=== PATIENT | female | born 1940 | race Caucasian/White ===

== ENCOUNTER 2017-02-10 06:30 | Emergency (ER) | payer BC, MEDICARE ==
[~2017-02-10 06:30] MED LIST: ATEN1TAB73; COUM5TAB; HYZA100T4; SOTA80TA; WARF2.5
[2017-02-10 06:33] VITALS: BP 185/84; PULSE 72; RESP 16; TEMP 98.5; O2SAT 97
[2017-02-10] MEDS ORDERED: CARV12.52 PO (06:50)
[2017-02-10] MEDS ORDERED: PRED5TAB PO (06:50)
[2017-02-10] MEDS ORDERED: DENO60P SQ (06:50)
[2017-02-10] MEDS ORDERED: VITA100036 PO (06:50)
[2017-02-10] MEDS ORDERED: SPIR25TA PO (06:50)
[2017-02-10] MEDS ORDERED: XARE20TA PO (06:50)
[2017-02-10] MEDS ORDERED: FURO20TA PO (06:50)
[2017-02-10 07:21] VITALS: BP 169/74; PULSE 61; RESP 16; O2SAT 99
--- NOTE | 2017-02-10 07:25 | PD ---
HPI Chief Complaint: Pain: Acute or Chronic Time Seen by Provider: 07:14 Travel History International Travel<30 days: No Contact w/Intl Traveler<30days: No Traveled to known affect area: No History of Present Illness HPI The patient was seen and examined in the presence of the nurse. This patient complains of pain in her left hip area. Duration is 10 hours. Severity is moderate. There is no injury. She has no fever. No alleviating factors. 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) Cholecystectomy: Yes Gynecologic Surgery: Yes (D&C) Insulin Pump: No Joint Replacement: No Pacemaker: No Tonsillectomy: Yes Other Surgery: Yes Social History Alcohol Use: No (NONE SINCE 2003) Tobacco Use: No (never) Substance Use: No Allergies-Medications (Allergen,Severity, Reaction): Coded Allergies: Levofloxacin (Verified Allergy, Severe, Swelling, 02/10/17) Reported Meds & Prescriptions Reported Meds & Active Scripts Active Reported Vitamin D3 (Cholecalciferol) 1,000 Unit Cap 1,000 Units PO DAILY Prolia Inj (Denosumab) 60 Mg/Ml Inj 60 Mg SQ Q180D Prednisone 5 Mg Tab 5 Mg PO DAILY Xarelto (Rivaroxaban) 20 Mg Tab 20 Mg PO DAILY Spironolactone 25 Mg Tab 25 Mg PO DAILY Furosemide 20 Mg Tab 20 Mg PO DAILY Carvedilol 12.5 Mg Tab 12.5 Mg PO BID Review of Systems General / Constitutional: No: Fever Eyes: No: Visual changes HENT: No: Headaches Cardiovascular: No: Chest Pain or Discomfort Respiratory: No: Shortness of Breath Gastrointestinal: No: Abdominal Pain Genitourinary: No: Dysuria Musculoskeletal: Positive: Pain Skin: No Rash Neurologic: No: Weakness Psychiatric: No: Depression Endocrine: No: Polydipsia Hematologic/Lymphatic: No: Easy Bruising Physical Exam Narrative SKIN: Focused skin assessment reveals no rash or ulcers. Skin is warm and dry. Palpation shows no induration or nodules. Psych: Normal mood and affect. Normal insight and judgment. GASTROINTESTINAL: Abdomen soft, non-tender, nondistended. Positive bowel sounds. No hepato-splenomegaly, or palpable masses. No guarding. Left hip: No erythema or bruising or swelling. Minimal tenderness over the trochanteric bursa. Good range of motion. Data Data Last Documented VS Vital Signs Date Time Temp Pulse Resp B/P Pulse Ox O2 Delivery O2 Flow Rate FiO2 02/10/17 07:21 61 16 169/74 99 Room Air 02/10/17 06:33 98.5 Orders Femur (Ap & Lat/2vws) (02/10/17 ) MDM Medical Decision Making Medical Screen Exam Complete: Yes Emergency Medical Condition: Yes Medical Record Reviewed: Yes Differential Diagnosis Trochanter bursitis, bony metastasis, DVT Narrative Course I have reviewed the patient's electronic medical record. I reviewed her left femur x-rays which show atherosclerotic disease but no abnormality of bone No objective findings on exam Area of pain is over the trochanteric bursa but it doesn't seem obviously inflamed Supportive care discussed Tramadol prescribed Recommend her using a walker for few days to keep weight off that leg. She is ambulatory here in the department though. Diagnosis Primary Impression: Left leg pain Additional Instructions: The patient was advised to follow up with their physician and return if they worsen. The patient was warned about potential sedation for the medications they will receive on prescription. Limit weightbearing left leg Med/Other Pt SpecificInfo: Prescription(s) given Scripts Tramadol 50 Mg Tab50 Mg PO Q6H PRN (PAIN) #20 TAB Ref 0 Prov:Sae Theodore MD 02/10/17 Disposition: DISCHARGE HOME Condition: Stable Sae Theodore MD February 10, 2017 07:25
--- NOTE | 2017-02-10 07:55 | RADRPT ---
EXAM DATE/TIME: 02/10/2017 07:31 [facility] COMPARISON: No previous studies available for comparison. INDICATIONS : Left leg pain for the past two days. No prior trauma. MEDICAL HISTORY : Arthritis. SURGICAL HISTORY : None. ENCOUNTER: Initial ACUITY: 2 days PAIN SCORE: 10/10 LOCATION: Left leg. FINDINGS: Four views of the left femur demonstrate no fracture or dislocation. Mineralization is mildly decreas ed. No soft tissue abnormality or opaque foreign body is identified. There is severe arterial vascula r calcification CONCLUSION: No acute abnormality is identified. There is severe atherosclerotic disease. Tu Arreoal MD on February 10, 2017 at 7:51 Board Certified Radiologist. This report was verified electronically.
[2017-02-10] MEDS ORDERED: TRAM50TA PO (08:25)
== END 2017-02-10 08:50 | disposition home or self-care (01) ==
LOC: NEPC 06:30
DX: M79.605 Pain in left leg (principal); I48.91 Unspecified atrial fibrillation; I10 Essential (primary) hypertension
CPT/HCPCS: 73552; 99283